=== PATIENT | male | born 1975 ===

== ENCOUNTER 2019-08-06 13:33 | Outpatient (REF) | payer SELFPAY ==
[2019-08-06 19:12] LABS: Calculated LDL 139 mg/dL (<100); Cholesterol 224 mg/dL (<200); HDL Cholesterol 48 mg/dL (40-60); Triglyceride 188 mg/dL (<150)
== END 2019-08-06 13:53 ==
LOC: NCHCN 13:33
PROVIDERS: Visit Provider Nurse Practitioner Family
DX: Z13.220 Encounter for screening for lipoid disorders (principal)
CPT/HCPCS: 80061

== ENCOUNTER 2023-10-10 16:20 | Outpatient (REF) | payer SELFPAY ==
[2023-10-10 18:43] LABS: ALT 44 U/L (16-63); AST 22 U/L (15-37); Albumin 4.4 g/dL (3.4-5.0); Alkaline Phosphatase 60 U/L (46-116); Anion Gap 5.8 mmol/L (3-11); BUN 15 mg/dL (7-18); Bilirubin, Total 0.9 mg/dL (0.2-1.0); CO2 29.2 mmol/L (21.0-32.0); CREATININE 1.4 mg/dL (0.70-1.30); Calcium 9.1 mg/dL (8.5-10.1); Calculated LDL 154 mg/dL (<100); Chloride 102 mmol/L (98-107); Cholesterol 245 mg/dL (<200); Estimated GFR 62.77 (mL/min/1.73m2); Glucose 99 mg/dL (74-106); HDL Cholesterol 65 mg/dL (40-60); Potassium 4.1 mmol/L (3.5-5.1); Sodium 137 mmol/L (136-145); Total Protein 7.9 g/dL (6.4-8.2); Triglyceride 130 mg/dL (<150)
[2023-10-11 19:31] LABS: Hepatitis C Ab w Rflx HCV PCR Negative (Negative)
== END 2023-10-10 16:21 | disposition home or self-care (01) ==
LOC: NCHCN 16:20
PROVIDERS: Visit Provider Nurse Practitioner Family
DX: Z00.00 Encounter for general adult medical examination without abnormal findings (principal)
CPT/HCPCS: 80053; 80061; 86803

== ENCOUNTER 2024-02-08 23:56 | Emergency (ER) | payer OTHER, SELFPAY ==
[2024-02-09 00:01] VITALS: BP 140/104; PULSE 83; RESP 16; TEMP 37; O2SAT 99
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
--- NOTE | 2024-02-09 00:19 | NUR.NOTE ---
Nursing Note: Pt arrives via EMS for MH concern. Pt made statement to EMS that he was going to jump off a bridge. Pt refusing to answer questions in triage, stating he will not talk until his arrives. Pt states I am suffering from a broken heart.
[2024-02-09 00:37] LABS: Abs Immature Grans 0.03 10^3/uL (0.0-0.06); Absolute Basophil Count 0.06 10^3/uL (0.0-0.2); Absolute Eosinophil Count 0.26 10^3/uL (0.0-0.7); Absolute Lymphocyte Count 1.15 10^3/uL (1.2-3.4); Absolute Monocyte Count 0.76 10^3/uL (0.1-0.8); Absolute Neutrophil Count 5.62 10^3/uL (1.2-6.7); Basophils % 0.8 %; Eosinophils % 3.3 %; HCT 44.7 % (40.0-50.0); HGB 14.7 g/dL (13.5-17.5); Immature Grans % 0.4 %; Lymphocytes % 14.6 %; MCH 30.8 pg (27.0-33.0); MCHC 32.9 % (32.0-36.0); MCV 94 fL (80-95); Monocytes % 9.6 %; Neutrophils % 71.3 %; Platelet Count 225 10^3/uL (130-400); RBC 4.78 10^6/uL (4.36-5.78); RDW 12.3 % (11.8-14.1); RDW-SD 42.8 fL; WBC 7.88 10^3/uL (4.4-10.8)
[2024-02-09 01:01] LABS: ALT 14 U/L (16-63); AST 18 U/L (15-37); Albumin 4.4 g/dL (3.4-5.0); Alkaline Phosphatase 61 U/L (46-116); Anion Gap 9.2 mmol/L (3-11); BUN 13 mg/dL (7-18); Bilirubin, Total 0.85 mg/dL (0.2-1.0); CO2 28.8 mmol/L (21.0-32.0); CREATININE 1.1 mg/dL (0.70-1.30); Calcium 9.6 mg/dL (8.5-10.1); Chloride 103 mmol/L (98-107); Estimated GFR 83.84 (mL/min/1.73m2); Glucose 118 mg/dL (74-106); Potassium 3.6 mmol/L (3.5-5.1); Sodium 141 mmol/L (136-145); TSH (W/Ref FT4) 3.53 uIU/mL (0.36-3.74); Total Protein 8.2 g/dL (6.4-8.2)
[2024-02-09 01:03] LABS: ETHANOL BLOOD < 3.0 mg/dL (<10)
[2024-02-09 01:08] LABS: Acetaminophen < 2 ug/mL (10-30); Salicylate < 2.8 mg/dL (<2.8)
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
[2024-02-09] MEDS: diazePAM 5 MG TAB PO (02:15)
== END 2024-02-09 08:09 | disposition home or self-care (01) ==
PROVIDERS: Emergency Provider Student in an Organized Health Care Education/Training Program
DX: R45.851 Suicidal ideations (principal); F32.A Depression, unspecified
CPT/HCPCS: 00123; 36415; 80053; 99284; 80320; 80329; 84443; 85025